=== PATIENT | female | born 1990 | race African-American/Black ===

== ENCOUNTER 2016-09-20 09:27 | Emergency (ER) | payer OTHER ==
[~2016-09-20] VITALS: Ht 170.2 cm; Wt 68.0 kg
[2016-09-20] MEDS ORDERED: AZASITE2.5 ML OP (10:27)
[2016-09-20 11:05] LABS: CALCIUM 9.1 mg/dL (8.5-10.1); CREATININE 0.8 mg/dL (0.6-1.0); POTASSIUM 3.9 mmol/L (3.5-5.1)
[2016-09-20 11:58] LABS: ABSOLUTE NEUTROPHILS 1.5 thou/uL (1.4-8.2); BASOPHILS 0.4 % (0.0-2.0); EOSINOPHILS 0.2 % (0.0-3.0); HEMATOCRIT 41.9 % (37.0-47.0); HEMOGLOBIN 14.3 gm/dL (12.0-15.0); LYMPHOCYTES 40.9 % (24.0-44.0); MCHC 34.3 g/dL (28.0-37.0); MCV 90.6 fL (80.0-100.0); MONOCYTES 11.5 % (1.0-8.0); PLATELET COUNT 247 thou/uL (150-400); RBC 4.62 mil/uL (4.20-5.00); WBC 3.2 thou/uL (4.0-11.0)
[2016-09-20 11:59] LABS: MANUAL DIFF NO
[2016-09-20] MEDS ORDERED: AUGMENTIN 875875 MG PO (12:28)
[2016-09-20] MEDS ORDERED: NAPROSYN500 MG PO (12:28)
[2016-09-20] MEDS ORDERED: ERYTHROMYCIN E3.5 G3 OPHTHALMIC (12:28)
[2016-09-20 12:33] VITALS: BP 123/68
== END 2016-09-20 12:23 | disposition home or self-care (01) ==
LOC: ER 09:27
PROVIDERS: Physician Assistant
DX: H10.9 Unspecified conjunctivitis (principal); L03.213 Periorbital cellulitis; N80.9 Endometriosis, unspecified; F12.10 Cannabis abuse, uncomplicated

== ENCOUNTER 2020-07-14 11:57 | Emergency (ER) | payer OTHER ==
[~2020-07-14] VITALS: Ht 170.2 cm; Wt 79.4 kg
[~2020-07-14 11:57] MED LIST: AUGMENTIN 875875 MG PO; AZASITE2.5 ML OP; ERYTHROMYCIN E3.5 G3 OPHTHALMIC; NAPROSYN500 MG PO
[2020-07-14 13:25] LABS: ABSOLUTE NEUTROPHILS 8.6 thou/uL (1.4-8.2); BASOPHILS 0.4 % (0.0-2.0); EOSINOPHILS 0.1 % (0.0-3.0); HEMATOCRIT 45.8 % (37.0-47.0); HEMOGLOBIN 15.4 gm/dL (12.0-15.0); LYMPHOCYTES 14.5 % (24.0-44.0); MCH 30.6 pg (26.0-34.0); MCHC 33.6 g/dL (28.0-37.0); MCV 90.8 fL (80.0-100.0); MONOCYTES 2.4 % (1.0-8.0); PLATELET COUNT 395 thou/uL (150-400); POLYS 82.6 % (36.0-66.0); RBC 5.05 mil/uL (4.20-5.00); RDW 12.9 % (10.5-14.5); WBC 10.4 thou/uL (4.0-11.0)
[2020-07-14 13:56] LABS: POTASSIUM 3.7 mmol/L (3.5-5.1)
[2020-07-14 14:02] LABS: ALBUMIN 4.4 g/dL (3.4-5.0); MAGNESIUM 1.6 mg/dL (1.8-2.4); TOTAL BILIRUBIN 0.8 mg/dL (0.2-1.0); TOTAL PROTEIN 8.6 g/dL (6.4-8.2)
[2020-07-14 16:45] LABS: URINE BILIRUBIN NEGATIVE (Negative); URINE BLOOD TRACE (Negative); URINE CLARITY CLEAR; URINE COLOR YELLOW; URINE GLUCOSE-RANDOM* NEGATIVE (Negative); URINE KETONES 3+ (Negative); URINE LEUKOCYTES-REFLEX NEGATIVE (Negative); URINE NITRITE-REFLEX NEGATIVE (Negative); URINE PROTEIN (DIPSTICK) NEGATIVE (Negative); URINE UROBILINOGEN 0.2 E.U./dl (0.2-1.0)
[2020-07-14 16:54] LABS: AMP/METHAMP Negative (Negative); BARBITURATES Negative (Negative); BENZODIAZEPINES Negative (Negative); COCAINE Negative (Negative); METHADONE Negative (Negative); OPIATES POSITIVE (Negative); PCP Negative (Negative)
[2020-07-14 16:59] LABS: URINE REDUCING SUBSTANCE NEGATIVE
[2020-07-14] MEDS ORDERED: ZOFRAN ODT4 MG PO (18:56)
[2020-07-14 19:12] VITALS: BP 150/80
== END 2020-07-14 19:13 | disposition home or self-care (01) ==
LOC: ER 11:57
PROVIDERS: Emergency Medicine
DX: R11.2 Nausea with vomiting, unspecified (principal); T47.4X5A Adverse effect of other laxatives, initial encounter; R51.9 Headache, unspecified; R19.7 Diarrhea, unspecified; R10.84 Generalized abdominal pain; Z79.899 Other long term (current) drug therapy; Z79.2 Long term (current) use of antibiotics; Y92.89 Other specified places as the place of occurrence of the external cause